=== PATIENT | female | born 1940 | race Caucasian/White ===

== ENCOUNTER 2017-05-05 22:50 | Emergency (ER) | payer MEDICARE, OTHER ==
[~2017-05-05] VITALS: Ht 165.1 cm; Wt 80.0 kg
[2017-05-05 22:53] VITALS: BP 223/87; PULSE 62; RESP 16; TEMP 97.6; O2SAT 98
[2017-05-05 23:30] VITALS: RESP 18; O2SAT 98
[2017-05-05 23:45] LABS: AUTOMATED NEUTROPHIL # 3.2 TH/MM3 (1.8-7.7); BASOPHIL % 0.7 % (0.0-2.0); EOSINOPHIL # 0.4 TH/MM3 (0-0.4); EOSINOPHIL % 5.8 % (0.0-4.0); HEMATOCRIT 38.5 % (35.0-46.0); HEMOGLOBIN 13.4 GM/DL (11.6-15.3); LYMPH % 32.8 % (9.0-44.0); MEAN CELL VOLUME 90.7 FL (80.0-100.0); MEAN CORPUSCULAR HEMOGLOBIN 31.5 PG (27.0-34.0); MEAN CORPUSCULAR HGB CONC 34.8 % (32.0-36.0); MEAN PLATELET VOLUME 10.8 FL (7.0-11.0); MONO % 9.1 % (0.0-8.0); MONOCYTE # 0.6 TH/MM3 (0-0.9); NEUT % 51.6 % (16.0-70.0); PLATELET COUNT 127 TH/MM3 (150-450); RED BLOOD COUNT 4.24 MIL/MM3 (4.00-5.30); WHITE BLOOD COUNT 6.1 TH/MM3 (4.0-11.0)
[2017-05-05 23:51] LABS: BILIRUBIN, URINE NEG (NEG); BLOOD, URINE NEG (NEG); GLUCOSE,URINE NEG (NEG); HYALINE CAST, URINE 3 /lpf (RARE); KETONE, URINE NEG (NEG); NITRITE,URINE NEG (NEG); PH, URINE 6.5 (5.0-8.5); SQUAMOUS EPITHELIAL CELL URINE <1 /hpf (0-5); URINE COLOR YELLOW (YELLW/STRAW); URINE LEUKOCYTE ESTERASE MOD (NEG)
[2017-05-05 23:58] LABS: PROTHROMBIN TIME - PATIENT 10.4 SEC (9.8-11.6)
--- NOTE | 2017-05-06 | RADRPT ---
EXAM DATE/TIME: 05/05/2017 23:29 [place] COMPARISON: No previous studies available for comparison. INDICATIONS : Bilateral leg swelling. MEDICAL HISTORY : Hypothyroidism. Hypercholesterolemia. Hypertension. Atrial fibrillation. Deep vein thrombosis. SURGICAL HISTORY : Tubal ligation. Breast implants. Varicose vein injections. ENCOUNTER: Initial ACUITY: 1 day PAIN SCORE: 0/10 LOCATION: Bilateral legs. TECHNIQUE: Venous ultrasound of the left and right leg was performed from the inguinal ligament to the proximal calf. Real-time, color Doppler and spectral tracing, compression and augmentation techniques were us ed. FINDINGS: RIGHT LEG: There is normal compressibility of the deep venous system from the inguinal region to the proximal ca lf. No echogenic clot is seen in the lumen of the common femoral, femoral, popliteal, and posterior tibial veins. There is a normal response of the venous system to proximal and distal augmentation an d respiration. LEFT LEG: There is normal compressibility of the deep venous system from the inguinal region to the proximal ca lf. No echogenic clot is seen in the lumen of the common femoral, femoral, popliteal, and posterior tibial veins. There is a normal response of the venous system to proximal and distal augmentation an d respiration. CONCLUSION: 1. No sonographic evidence for lower extremity DVT. Wade Ballesteros MD on May 05, 2017 at 23:58 Board Certified Radiologist. This report was verified electronically.
[2017-05-06 00:03] LABS: ALT (GPT) 30 U/L (10-53); AST (GOT) 24 U/L (15-37); BICARBONATE 31.8 MEQ/L (21.0-32.0); BLOOD UREA NITROGEN 21 MG/DL (7-18); CALCIUM 9.1 MG/DL (8.5-10.1); CHLORIDE 102 MEQ/L (98-107); CREATININE 1.43 MG/DL (0.50-1.00); GLOMERULAR FILTRATION RATE 36 ML/MIN (>89); GLUCOSE,RANDOM 91 MG/DL (74-106); MAGNESIUM 1.9 MG/DL (1.5-2.5); SODIUM (NA) 140 MEQ/L (136-145)
[2017-05-06 00:13] LABS: ALKALINE PHOSPHATASE 119 U/L (45-117); TOTAL BILIRUBIN ADULT 0.5 MG/DL (0.2-1.0); TOTAL PROTEIN 7.3 GM/DL (6.4-8.2)
--- NOTE | 2017-05-06 00:42 | PD ---
HPI Chief Complaint: Edema Time Seen by Provider: 23:02 Travel History International Travel<30 days: No Contact w/Intl Traveler<30days: No Traveled to known affect area: No History of Present Illness HPI The patient is a 76 year old female who presents to the [facility] emergency department with a history of lower extremity edema that she reports has been ongoing for the last 3 days. She reports that she has had edema in her legs in the past, however none this severe. She is currently on vacation from [place]. She reports that she arrived in the area approximately a week ago by plane. She does report having a remote history of DVT. She reports that she was anticoagulated on Xarelto, however this was discontinued 6 months ago. The patient additionally reports having a history of atrial fibrillation status post ablation. She does take a low-dose aspirin daily, however she forgot to take it today. Review of systems otherwise, the patient denies having any known recent fevers,cough, congestion, neck pain, chest pain, shortness of breath, abdominal pain, vomiting, diarrhea, urinary symptoms, or neurologic symptoms. [facility] Past Medical History Narrative Medical The patient's past medical history is significant for atrial fibrillation status post ablation, history of DVT, history of hypertension, hypothyroid disorder, hyperlipidemia Atrial Fibrillation: Yes High Cholesterol: Yes Diminished Hearing: No Deep Vein Thrombosis: Yes Hypertension: Yes Thyroid Disease: Yes (hypo) Tetanus Vaccination: Unknown Influenza Vaccination: No ?: Not LMP: menapause Tubal Ligation: Yes Past Surgical History Narrative Surgical The patient's past surgical history is significant for bilateral tubal ligation , varicose vein injections, breast implants. Gynecologic Surgery: Yes (breast implants) Other Surgery: Yes (varicouse imer injects ) Social History Alcohol Use: Yes (socially) Tobacco Use: No Substance Use: No Allergies-Medications (Allergen,Severity, Reaction): Coded Allergies: No Known Allergies (Unverified , 05/05/17) Review of Systems Except as stated in HPI: all other systems reviewed are Neg General / Constitutional: No: Fever Eyes: No: Visual changes HENT: No: Headaches Cardiovascular: Positive: Edema, No: Chest Pain or Discomfort, Dyspnea on exertion Respiratory: No: Shortness of Breath Gastrointestinal: No: Nausea, Vomiting, Diarrhea, Abdominal Pain Genitourinary: No: Dysuria Musculoskeletal: No: Pain Skin: No Rash Neurologic: No: Weakness, Focal Abnormalities, Change in Mentation, Slurred Speech, Sensory Disturbance Psychiatric: No: Depression Endocrine: No: Polydipsia Hematologic/Lymphatic: No: Easy Bruising Physical Exam Narrative General: The patient is a well-developed well-nourished female in no acute distress. Head and Neck exam: Head is normocephalic atraumatic. Eyes: EOMI, pupils are equal round and reactive to light. Nose: Midline septum with pink mucous membranes Mouth: Dentition unremarkable. Moist mucus membranes. Posterior oropharynx is not erythematous. No tonsillar hypertrophy. Uvula midline. Airway patent. Neck: No palpable lymphadenopathy. No nuchal rigidity. No thyromegaly. Cardiovascular: Regular rate and rhythm without murmurs, gallops, or rubs. Lungs: Clear to auscultation bilaterally. No wheezes, rhonchi, or rales. Abdomen: Soft, without tenderness to palpation in all 4 quadrants of the abdomen. No guarding, rebound, or rigidity. Normal bowel sounds are audible. No tenderness on palpation of McBurney's point. Negative Sawyer sign. Extremities: No clubbing or cyanosis. The patient has trace to 1+ pitting edema bilateral lower extremities. 2+ pulses in all 4 extremities. No calf tenderness on palpation. Negative Homans sign. No palpable cords. Back: No spinous process tenderness to palpation. No costovertebral angle tenderness to palpation. Neurologic Exam: Grossly nonfocal. Skin Exam: No rash noted. Intact skin that is warm and dry. Data Data Last Documented VS Vital Signs Date Time Temp Pulse Resp B/P (MAP) Pulse Ox O2 Delivery O2 Flow Rate FiO2 05/05/17 23:30 18 98 Room Air 05/05/17 22:53 97.6 62 223/87 (132) Orders Orders Us Leg Venous Doppler Bilat (05/05/17 23:06) Electrocardiogram (05/05/17 23:27) Complete Blood Count With Diff (05/05/17 23:27) Comprehensive Metabolic Panel (05/05/17 23:27) B-Type Natriuretic Peptide (05/05/17 23:27) Prothrombin Time / Inr (Pt) (05/05/17 23:27) Act Partial Throm Time (Ptt) (05/05/17 23:27) Urinalysis - C+S If Indicated (05/05/17 23:27) Magnesium (Mg) (05/05/17 23:27) Thyroid Stimulating Hormone (05/05/17 23:27) Iv Access Insert/Monitor (05/05/17 23:27) Ecg Monitoring (05/05/17 23:27) Oximetry (05/05/17 23:27) Labs Laboratory Tests Test 05/05/17 23:00 White Blood Count 6.1 TH/MM3 Red Blood Count 4.24 MIL/MM3 Hemoglobin 13.4 GM/DL Hematocrit 38.5 % Mean Corpuscular Volume 90.7 FL Mean Corpuscular Hemoglobin 31.5 PG Mean Corpuscular Hemoglobin Concent 34.8 % Red Cell Distribution Width 14.0 % Platelet Count 127 TH/MM3 Mean Platelet Volume 10.8 FL Neutrophils (%) (Auto) 51.6 % Lymphocytes (%) (Auto) 32.8 % Monocytes (%) (Auto) 9.1 % Eosinophils (%) (Auto) 5.8 % Basophils (%) (Auto) 0.7 % Neutrophils # (Auto) 3.2 TH/MM3 Lymphocytes # (Auto) 2.0 TH/MM3 Monocytes # (Auto) 0.6 TH/MM3 Eosinophils # (Auto) 0.4 TH/MM3 Basophils # (Auto) 0.0 TH/MM3 CBC Comment DIFF FINAL Differential Comment Prothrombin Time 10.4 SEC Prothromb Time International Ratio 1.0 RATIO Activated Partial Thromboplast Time 25.4 SEC Urine Color YELLOW Urine Turbidity CLEAR Urine pH 6.5 Urine Specific [place] 1.024 Urine Protein TRACE mg/dL Urine Glucose (UA) NEG mg/dL Urine Ketones NEG mg/dL Urine Occult Blood NEG Urine Nitrite NEG Urine Bilirubin NEG Urine Urobilinogen LESS THAN 2.0 MG/DL Urine Leukocyte Esterase MOD Urine RBC LESS THAN 1 /hpf Urine WBC 1 /hpf Urine Squamous Epithelial Cells <1 /hpf Urine Hyaline Casts 3 /lpf Microscopic Urinalysis Comment CULT NOT INDICATED Blood Urea Nitrogen 21 MG/DL Creatinine 1.43 MG/DL Random Glucose 91 MG/DL Total Protein 7.3 GM/DL Albumin 4.0 GM/DL Calcium Level 9.1 MG/DL Magnesium Level 1.9 MG/DL Alkaline Phosphatase 119 U/L Aspartate Amino Transf (AST/SGOT) 24 U/L Alanine Aminotransferase (ALT/SGPT) 30 U/L Total Bilirubin 0.5 MG/DL Sodium Level 140 MEQ/L Potassium Level 3.3 MEQ/L Chloride Level 102 MEQ/L Carbon Dioxide Level 31.8 MEQ/L Anion Gap 6 MEQ/L Estimat Glomerular Filtration Rate 36 ML/MIN B-Type Natriuretic Peptide 121 PG/ML Thyroid Stimulating Hormone 3rd Gen 4.340 uIU/ML MDM Medical Decision Making Medical Screen Exam Complete: Yes Emergency Medical Condition: Yes Medical Record Reviewed: Yes Interpretation(s) Vital Signs Date Time Temp Pulse Resp B/P (MAP) Pulse Ox O2 Delivery O2 Flow Rate FiO2 05/05/17 23:30 18 98 Room Air 05/05/17 22:53 97.6 62 16 223/87 (135) 98 Differential Diagnosis Valvular abnormality of the veins in the legs causing edema, versus dependent edema, versus DVT, versus hypoalbuminemia, versus hypothyroid disorder, versus congestive heart failure, versus renal failure Narrative Course During the course of the patient's emergency department visit, the patient's history, examination, and differential diagnosis were reviewed with the patient. The patient was placed on a cardiac catheterization technologist with oximetry and frequent blood pressure monitoring. The patient had IV access obtained and blood work sent for analysis. The patient had an EKG done on arrival that shows a sinus bradycardia heart rate of 52, no acute ST segment elevation, T waves are inverted in V1, QRS duration is 109 ms, QTC is 367 ms. The patient's laboratory studies were reviewed and remarkable for a white count of 6.1, hemoglobin 13.4, platelets 127 with 9.1 monocytes, CMP is remarkable for potassium of 3.3 which will be supplemented orally, BUN 21, creatinine 1.43 , alk phos 119, TSH is elevated at 4.34, BNP is 121, PT 10.4, PTT 25.4, urinalysis is unremarkable. Radiology studies were reviewed and remarkable for ultrasound of bilateral lower extremities is negative for DVT. The patient's symptoms are most consistent with dependent edema. The patient is instructed to elevate her legs frequently, wear compression stockings, follow -up with her doctor about the TSH that is elevated. She is instructed to avoid salt in her diet. The patient is resting comfortably and feels better, is alert and in no distress. The patient's results and examination findings were discussed with the patient. The repeat examination is unremarkable and benign. The history, exam, diagnostic testing, and current condition do not suggest any significant pathology to warrant further testing, continued ED treatment, admission, or surgical evaluation at this point. The vital signs have been stable. The patient does not have uncontrollable pain, intractable vomiting, or other significant symptoms. The patient's condition is stable and appropriate for discharge. The patient will pursue further outpatient evaluation with a primary care physician or other designated or consulting physician as indicated in the discharge instructions. The patient expressed understanding and was agreeable with this plan. Diagnosis Primary Impression: Dependent edema Additional Impression: Lower extremity edema Referrals: Primary Care Physician 1 week Patient Instructions: General Instructions, Leg Edema (ED) Additional Instructions: Avoid salt in your diet, stick to a less than 2 g per day sodium limit. The patient is instructed to elevate her legs frequently. The patient is instructed to wear compression stockings. The patient is given a copy of her laboratory studies including her TSH which is slightly elevated and could be contributing to her lower extremity edema. Her levothyroxine will need to be titrated up when she arrives back home. Med/Other Pt SpecificInfo: No Change to Meds Disposition: DISCHARGE HOME Condition: Stable Ivett Rapp MD May 06, 2017 00:41
[2017-05-06] MEDS ORDERED: POTASSIUM CHLORIDE 20 MEQ CONTROLLED RELEASE TAB PO ONE (00:45)
[2017-05-06 00:48] VITALS: BP 185/83; PULSE 61; RESP 16; O2SAT 98
--- NOTE | 2017-05-06 11:28 | EKG ---
Date Performed: 05/05/2017 Time Performed: 23:23:29 PTAGE: 76 years EKG: SINUS BRADYCARDIA NONSPECIFIC T-WAVE ABNORMALITY BORDERLINE ECG NO PREVIOUS TRACING DOCTOR: Elías Salazar Interpretating Date/Time 05/06/2017 11:26:33
== END 2017-05-06 01:17 | disposition home or self-care (01) ==
LOC: NEPC 22:50
DX: R60.0 Localized edema (principal); I48.91 Unspecified atrial fibrillation; E78.00 Pure hypercholesterolemia, unspecified; I10 Essential (primary) hypertension; E03.9 Hypothyroidism, unspecified; R00.1 Bradycardia, unspecified; R94.31 Abnormal electrocardiogram [ECG] [EKG]; Z86.718 Personal history of other venous thrombosis and embolism
CPT/HCPCS: 80053; 81001; 83735; 83880; 84443; 85025; 85610; 85730; 93005; 93970; 99285